=== PATIENT | female | born 1985 | race Caucasian/White ===

== ENCOUNTER 2017-03-04 08:54 | Outpatient (CLI) | payer OTHER ==
[~2017-03-04] VITALS: Ht 175.3 cm; Wt 104.0 kg
[2017-03-04 09:12] VITALS: BP 113/67
[2017-03-04 09:51] VITALS: BP 117/83
[2017-03-04 10:15] VITALS: BP 117/70
== END 2017-03-04 11:05 | disposition home or self-care (01) ==
LOC: LDRP-OP 08:54 → 2WEST 08:55 → LDRP-OP 23:27
PROC: 10S0XZZ Reposition Products of Conception, External Approach (ICD-10-PCS; principal; 2017-03-04)
DX: O32.1XX0 Maternal care for breech presentation, not applicable or unspecified (principal); Z3A.36 36 weeks gestation of pregnancy
CPT/HCPCS: 59025; G0378; J3105

== ENCOUNTER 2017-04-01 12:49 | Inpatient (IN) | payer OTHER ==
[~2017-04-01] VITALS: Ht 175.3 cm; Wt 105.0 kg
[2017-04-01] MEDS ORDERED: AMOXICILLIN875 MG PO (13:09)
[2017-04-01 14:15] LABS: EOSINOPHIL (%) 1.3 % (0-5); EOSINOPHIL COUNT 0.1 K/uL (0-0.3); HEMATOCRIT 35.4 % (36.0-46.0); IMMATURE GRANULOCYTE (%) 0.6 % (0.0-0.7); IMMATURE GRANULOCYTE COUNT 0.1 K/uL; INSTRUMENT ABS NEUTROPHIL CT 5.9 K/uL; LYMPHOCYTE COUNT 1.8 K/uL (1.0-2.8); MCH 29.7 PG (29.0-34.0); MCHC 34.2 G/DL (30.0-36.0); MEAN PLAT.VOLUME 11.8 uM^3 (9.5-12.4); MONOCYTE (%) 5.6 % (3-12); MONOCYTE COUNT 0.5 K/uL (0-0.8); NEUTROPHIL (%) 70.9 % (45-76); NEUTROPHIL COUNT 5.9 K/uL (1.8-6.4); PLATELET COUNT 210 K/uL (156-360); RBC DIS.WIDTH-SD 44.5 % (39-53); RED BLOOD COUNT 4.07 M/uL (3.80-5.20); WHITE BLOOD COUNT 8.3 K/uL (4.1-10.2)
[2017-04-01 14:20] VITALS: BP 101/57
[2017-04-01 15:46] VITALS: BP 115/70
[2017-04-01 15:55] VITALS: BP 125/63
[2017-04-01 16:35] VITALS: BP 122/78
[2017-04-01 16:43] VITALS: BP 116/74
[2017-04-01 17:36] VITALS: BP 110/70
[2017-04-02 07:03] LABS: EOSINOPHIL (%) 1.3 % (0-5); EOSINOPHIL COUNT 0.1 K/uL (0-0.3); HEMATOCRIT 30.6 % (36.0-46.0); IMMATURE GRANULOCYTE (%) 0.7 % (0.0-0.7); IMMATURE GRANULOCYTE COUNT 0.1 K/uL; INSTRUMENT ABS NEUTROPHIL CT 5.2 K/uL; MCH 29.9 PG (29.0-34.0); MCV 87.9 FL (83-99); MEAN PLAT.VOLUME 11.9 uM^3 (9.5-12.4); MONOCYTE (%) 6.5 % (3-12); MONOCYTE COUNT 0.6 K/uL (0-0.8); NEUTROPHIL (%) 57.5 % (45-76); NEUTROPHIL COUNT 5.2 K/uL (1.8-6.4); PLATELET COUNT 205 K/uL (156-360); RBC DIS.WIDTH-CV 14.1 % (11.8-14.6); RBC DIS.WIDTH-SD 44.9 % (39-53); RED BLOOD COUNT 3.48 M/uL (3.80-5.20)
[2017-04-02 07:19] VITALS: BP 120/65
[2017-04-02] MEDS ORDERED: VITAFOL-OB+DHA1 EACH PO (13:37)
[2017-04-02 15:14] VITALS: BP 114/69
== END 2017-04-02 19:35 | disposition home or self-care (01) | DRG 775 ==
LOC: LDRP-OP 12:49 → 2WEST 12:50 → LDRP-OP 04-02 07:35 → 2WEST 04-02 19:35 → LDRP-OP 05-01 11:12
PROVIDERS: Advanced Practice Midwife
PROC: 10E0XZZ Delivery of Products of Conception, External Approach (ICD-10-PCS; principal; 2017-04-01)
DX: O99.214 Obesity complicating childbirth (principal); E66.9 Obesity, unspecified; Z68.32 Body mass index [BMI] 32.0-32.9, adult; Z3A.40 40 weeks gestation of pregnancy; Z37.0 Single live birth
CPT/HCPCS: 85025; C1755; J7120